=== PATIENT | male | born 1940 | race Caucasian/White ===

== ENCOUNTER → 2017-08-17 | Outpatient (CLI) | payer MEDICARE, BC ==
--- NOTE | 2017-08-17 14:10 | PCVCIMAG ---
EXAM: BILATERAL CAROTID DUPLEX INDICATION: Carotid Occlusive Disease. FINDINGS: Doppler Measurements (centimeters per second): RIGHT: Peak CCA-81, Peak ECA-104, Diastolic ICA-21, Peak ICA-86, ICA/CCA Ratio-1.1. LEFT: Peak CCA-89, Peak ECA-85, Diastolic ICA-28, Peak ICA-116, ICA/CCA Ratio-1.3. RIGHT CAROTID: The carotid bulb has mild plaque. The proximal internal carotid artery shows <40% stenosis. The common carotid artery shows no significant stenosis. The external carotid artery shows no significant stenosis. LEFT CAROTID: The carotid bulb has moderate plaque. The proximal internal carotid artery shows <40% stenosis. The common carotid artery shows no significant stenosis. The external carotid artery shows no significant stenosis. Antegrade flow in both vertebral arteries. IMPRESSION: <40% stenosis of the right internal carotid artery with mild plaque. <40% stenosis of the left internal carotid artery with moderate plaque. LOC:[place] [id number]
--- NOTE | 2017-08-17 14:23 | PCVCIMAG ---
EXAM: AORTOILIAC DUPLEX INDICATION: Peripheral arterial disease FINDINGS: AORTA: Suprarenal aorta measures maximum diameter of 2.9 cm. There is a fusiform infrarenal aortic aneurysm. The infrarenal aorta measures maximum diameter of 4.0 x 4.1 cm. No aortic stenosis. RIGHT COMMON ILIAC ARTERY: Maximum diameter is 1.9 cm. No significant stenosis. RIGHT EXTERNAL ILIAC ARTERY: No significant stenosis. LEFT COMMON ILIAC ARTERY: Maximum diameter is 1.3 cm. Mild stenosis LEFT EXTERNAL ILIAC ARTERY: No significant stenosis. IMPRESSION: 4.1 cm infrarenal abdominal aortic aneurysm has increased from 3.8 cm on prior study. Ectasia of the mid/distal right common iliac artery measuring maximum outer diameter 1.9 cm. Mild stenosis left common iliac artery. LOC:[id number]
== END | disposition home or self-care (01) ==
LOC: PCVCIMAG 12:56
PROVIDERS: ATTEND Nuclear Medicine Nuclear Cardiology
DX: I65.23 Occlusion and stenosis of bilateral carotid arteries (principal); I70.202 Unspecified atherosclerosis of native arteries of extremities, left leg; I71.4 Abdominal aortic aneurysm, without rupture; I25.10 Atherosclerotic heart disease of native coronary artery without angina pectoris; I10 Essential (primary) hypertension; D68.2 Hereditary deficiency of other clotting factors; E78.00 Pure hypercholesterolemia, unspecified; I45.2 Bifascicular block; J45.909 Unspecified asthma, uncomplicated; Z85.51 Personal history of malignant neoplasm of bladder; Z86.73 Personal history of transient ischemic attack (TIA), and cerebral infarction without residual deficits; Z95.1 Presence of aortocoronary bypass graft; Z87.891 Personal history of nicotine dependence; Z79.82 Long term (current) use of aspirin; Z79.899 Other long term (current) drug therapy
CPT/HCPCS: 93880; 93978; G0463

== ENCOUNTER → 2018-07-26 | Outpatient (CLI) | payer MEDICARE, BC ==
--- NOTE | 2018-07-26 10:38 | PCVCIMAG ---
EXAM: BILATERAL CAROTID DUPLEX INDICATION: Carotid Occlusive Disease. FINDINGS: Doppler Measurements (centimeters per second): RIGHT: Peak CCA-66, Peak ECA-100, Diastolic ICA-27, Peak ICA-81, ICA/CCA Ratio-1.2. LEFT: Peak CCA-71, Peak ECA-81, Diastolic ICA-36, Peak ICA-106, ICA/CCA Ratio-1.5. RIGHT CAROTID: The carotid bulb has moderate plaque. The proximal internal carotid artery shows <40% stenosis. The common carotid artery shows no significant stenosis. The external carotid artery shows no significant stenosis. LEFT CAROTID: The carotid bulb has moderate plaque. The proximal internal carotid artery shows <40% stenosis. The common carotid artery shows no significant stenosis. The external carotid artery shows no significant stenosis. Antegrade flow in both vertebral arteries. IMPRESSION: <40% stenosis of the right internal carotid artery with moderate plaque. <40% stenosis of the left internal carotid artery with moderate plaque. LOC:[place] [id number]
--- NOTE | 2018-07-26 10:45 | PCVCIMAG ---
EXAM: AORTOILIAC DUPLEX INDICATION: Abdominal aortic aneurysm. FINDINGS: AORTA: Suprarenal aorta measures maximum diameter of 2.7 cm. There is a fusiform infrarenal aortic aneurysm. The infrarenal aorta measures maximum diameter of 4.0 x 4.1 cm. No aortic stenosis. RIGHT COMMON ILIAC ARTERY: Maximum diameter is 1.9 cm. No significant stenosis. RIGHT EXTERNAL ILIAC ARTERY: No significant stenosis. LEFT COMMON ILIAC ARTERY: Maximum diameter is 1.4 cm. No significant stenosis. LEFT EXTERNAL ILIAC ARTERY: No significant stenosis. IMPRESSION: 4.1 cm infrarenal abdominal aortic aneurysm is unchanged in size compared to August 2017 study. 1.9 cm area of ectasia distal right common iliac artery also unchanged. LOC:[id number]
== END | disposition home or self-care (01) ==
LOC: PCVCIMAG 12:53
PROVIDERS: ATTEND Nuclear Medicine Nuclear Cardiology
DX: I65.23 Occlusion and stenosis of bilateral carotid arteries (principal); I71.4 Abdominal aortic aneurysm, without rupture; I77.9 Disorder of arteries and arterioles, unspecified; I25.10 Atherosclerotic heart disease of native coronary artery without angina pectoris; I10 Essential (primary) hypertension; E78.00 Pure hypercholesterolemia, unspecified; D68.2 Hereditary deficiency of other clotting factors; Z79.82 Long term (current) use of aspirin
CPT/HCPCS: 93880; 93978; G0463

== ENCOUNTER → 2018-11-09 | Outpatient (CLI) | payer MEDICARE, BC | END | disposition home or self-care (01) | LOC: PCVCCLINIC 10:41 | PROVIDERS: ATTEND Nuclear Medicine Nuclear Cardiology | DX: I10 Essential (primary) hypertension (principal); E78.00 Pure hypercholesterolemia, unspecified; M19.90 Unspecified osteoarthritis, unspecified site; Z87.891 Personal history of nicotine dependence | CPT/HCPCS: G0463 ==

== ENCOUNTER → 2018-11-16 | Outpatient (CLI) | payer MEDICARE, BC ==
[~2018-11-16] MED LIST: DIAZEPAM 10 MG TABLET. ONE; HEPARIN for SUB-Q USE 5,000 UNIT/ML VIAL. SQ ONE; IOHEXOL 300 MG/ML 100ML VIAL. ONE; IV NORMAL SALINE 1000ML BAG 1,000 ML ONE; LIDOCAINE 1%/EPI 1:100,000 20 ML VIAL. ONE; MIDAZOLAM HCL/PF 2 MG/2 ML VIAL. ONE; fentaNYL PF VIAL 100 MCG/2 ML VIAL ONE; hydrALAZINE 20 MG/ML VIAL. ONE
--- NOTE | 2018-11-16 10:16 | PCVCINTER ---
EXAM: 1. AORTOGRAM AND BILATERAL ILIOFEMORAL ANGIOGRAPHY 2. BILATERAL RENAL ANGIOGRAPHY 3. COMPLETE MESENTERIC ANGIOGRAPHY 4. INFERIOR MESENTERIC ARTERY COIL EMBOLIZATION INDICATION: Abdominal aortic aneurysm. Pre stent graft operative planning. Hypertension. Renal atherosclerosis. PROCEDURE: Procedure and risks of the procedures listed above were discussed with the patient and consent obtained. Risks including but not limited to bleeding, infection, stroke, vascular injury, neurologic injury, embolization, allergic reactions, bowel ischemia requiring resection, and contrast-induced nephropathy requiring dialysis were discussed as appropriate and consent obtained. Patient was placed on the angiography table. IV conscious sedation was used throughout procedure with appropriate monitoring from 8:15 AM through 9:30 AM. The right groin was prepped and draped in the normal sterile fashion. Ultrasound was used to interrogate the right groin and demonstrate the right common femoral artery. An ultrasound image was saved. Under ultrasound guidance a 21 gauge needle was used to gain access into the right common femoral artery and a 5F vascular sheath was placed. Catheter was placed into the suprarenal abdominal aorta and abdominal aortic angiogram performed. Catheter was placed into the distal abdominal aorta and bilateral iliofemoral angiography performed. Catheter was placed into the right renal arteries and right renal angiograms performed. Catheter was placed into the left renal arteries and left renal angiograms performed. Catheter was placed into the celiac axis and celiac angiogram performed. Catheter was placed in the superior mesenteric artery and SMA angiogram performed. Catheter was placed into the inferior mesenteric artery and TAMEKA angiogram performed. Catheter was advanced further into the proximal inferior mesenteric artery and following this embolization of the proximal segment of the inferior mesenteric artery was carried out with a 6 mm Amplatz embolization device. Post embolization angiogram was performed. TAMEKA coil embolization was carried out because of the TAMEKA being a potential source of endoleak following stent graft repair of the aortic aneurysm. Catheters and wires removed. Sheath was removed and hemostasis obtained using the FISH device. No immediate complications. FINDINGS: Aortogram: There is one right and one left renal artery with the left renal artery being slightly lower than the right. At this level the aorta measures 15.2 mm luminal diameter. 1 cm below this it measures 18.1 mm. Below this a bilobed fusiform aneurysm is present. This ends at the aortic bifurcation. Bilateral iliofemoral angiography: The upper right common iliac artery is normal in caliber at 9.1 mm. In the mid/distal portion of the right common iliac artery is a fusiform aneurysm with luminal diameter of 15.8 mm. Right common iliac artery returns to normal caliber in its distal most portion. Both internal iliac arteries are patent. Right external iliac artery measures 7.4 mm. Left common iliac artery is patent measuring 9.4 mm in diameter and 5.6 cm in length. Left external iliac artery is patent measuring 7.6 mm. The right and left common femoral and profunda femoral arteries are patent. Visualized portion of the upper superficial femoral arteries are patent. Right renal artery: Eccentric plaque proximal vessel causes 50% stenosis. No branch vessel stenosis. Left renal artery: 60-70% concentric stenosis proximal vessel. Celiac axis: 60% stenosis proximal celiac axis. Distal branches are patent. Superior mesenteric artery: Superior mesenteric artery is widely patent as are its distal branches. Note is made of an accessory right hepatic artery. Inferior mesenteric artery: Inferior mesenteric artery is patent as are its distal branches. Following plug embolization there is good position of the Amplatzer device in the proximal segment of the inferior mesenteric artery. IMPRESSION: Bilateral fusiform infrarenal abdominal aortic aneurysm as detailed above. Bilateral renal artery stenosis as described. Satisfactory embolization proximal segment inferior mesenteric artery. We will have the patient seen by Dr. Mercado will work with us for stent graft repair of the patient's aneurysm. LOC:[id number]
== END | disposition home or self-care (01) ==
LOC: PCVCINTER 08:14
PROVIDERS: ATTEND Nuclear Medicine Nuclear Cardiology
DX: I71.4 Abdominal aortic aneurysm, without rupture (principal); I70.1 Atherosclerosis of renal artery; I10 Essential (primary) hypertension; I77.4 Celiac artery compression syndrome; I25.10 Atherosclerotic heart disease of native coronary artery without angina pectoris; E78.00 Pure hypercholesterolemia, unspecified; J45.909 Unspecified asthma, uncomplicated; I45.2 Bifascicular block; M19.90 Unspecified osteoarthritis, unspecified site; Z86.73 Personal history of transient ischemic attack (TIA), and cerebral infarction without residual deficits; Z85.51 Personal history of malignant neoplasm of bladder; Z95.1 Presence of aortocoronary bypass graft; Z98.890 Other specified postprocedural states; Z72.89 Other problems related to lifestyle; Z82.49 Family history of ischemic heart disease and other diseases of the circulatory system; Z87.891 Personal history of nicotine dependence; Z88.2 Allergy status to sulfonamides; Z88.1 Allergy status to other antibiotic agents; Z79.899 Other long term (current) drug therapy; Z79.82 Long term (current) use of aspirin; G89.29 Other chronic pain; D68.2 Hereditary deficiency of other clotting factors; I49.3 Ventricular premature depolarization
CPT/HCPCS: 36245; 36252; 37242; 75716; 75726; 76937; 99152; 99153; C1751; C1760; C1769; C1894; J1644; J2250; J3010; J3490; J7030; Q9967; 75630; J0360; J0690

== ENCOUNTER → 2019-01-02 | Outpatient (CLI) | payer MEDICARE, BC | END | disposition home or self-care (01) | LOC: PCVCCLINIC 10:01 | PROVIDERS: ATTEND Nuclear Medicine Nuclear Cardiology | DX: I71.4 Abdominal aortic aneurysm, without rupture (principal); I77.9 Disorder of arteries and arterioles, unspecified; I25.10 Atherosclerotic heart disease of native coronary artery without angina pectoris; I10 Essential (primary) hypertension; E78.00 Pure hypercholesterolemia, unspecified; Z87.891 Personal history of nicotine dependence | CPT/HCPCS: G0463 ==

== ENCOUNTER → 2019-08-03 | Outpatient (CLI) | payer MEDICARE, BC ==
--- NOTE | 2019-08-03 17:17 | PCVCIMAG ---
EXAM: BILATERAL CAROTID DUPLEX INDICATION: Carotid Occlusive Disease. FINDINGS: Doppler Measurements (centimeters per second): RIGHT: Peak CCA-72, Peak ECA-74, Diastolic ICA-13, Peak ICA-74, ICA/CCA Ratio-1.0. LEFT: Peak CCA-91, Peak ECA-60, Diastolic ICA-27, Peak ICA-95, ICA/CCA Ratio-1.0. RIGHT CAROTID: The carotid bulb has moderate plaque. The proximal internal carotid artery shows <40% stenosis. The common carotid artery shows no significant stenosis. The external carotid artery shows no significant stenosis. LEFT CAROTID: The carotid bulb has moderate plaque. The proximal internal carotid artery shows <40% stenosis. The common carotid artery shows no significant stenosis. The external carotid artery shows no significant stenosis. Antegrade flow in both vertebral arteries. IMPRESSION: <40% stenosis of the right internal carotid artery with moderate plaque. <40% stenosis of the left internal carotid artery with moderate plaque. No change since July 2018. LOC:[id number]
== END | disposition home or self-care (01) ==
LOC: PCVCIMAG 14:13
PROVIDERS: ATTEND Nuclear Medicine Nuclear Cardiology
DX: I65.23 Occlusion and stenosis of bilateral carotid arteries (principal); Z87.891 Personal history of nicotine dependence; Z88.2 Allergy status to sulfonamides; Z88.8 Allergy status to other drugs, medicaments and biological substances
CPT/HCPCS: 93880

== ENCOUNTER → 2019-08-08 | Outpatient (CLI) | payer MEDICARE, BC | END | disposition home or self-care (01) | LOC: PCVCCLINIC 15:00 | PROVIDERS: ATTEND Nuclear Medicine Nuclear Cardiology | DX: I71.4 Abdominal aortic aneurysm, without rupture (principal); I73.9 Peripheral vascular disease, unspecified; I25.10 Atherosclerotic heart disease of native coronary artery without angina pectoris; I10 Essential (primary) hypertension; M19.90 Unspecified osteoarthritis, unspecified site; E78.00 Pure hypercholesterolemia, unspecified; Z88.2 Allergy status to sulfonamides; Z88.8 Allergy status to other drugs, medicaments and biological substances; Z87.891 Personal history of nicotine dependence; Z72.89 Other problems related to lifestyle; Z79.82 Long term (current) use of aspirin; Z79.899 Other long term (current) drug therapy | CPT/HCPCS: G0463 ==